=== PATIENT | female | born 1995 | race Caucasian/White ===

== ENCOUNTER 2020-01-29 10:35 | Emergency (ER) | payer MEDICAID ==
[~2020-01-29] VITALS: Ht 149.9 cm; Wt 72.1 kg
[~2020-01-29 10:35] MED LIST: OMEP20TC22 PO
[2020-01-29 10:38] VITALS: BP 144/80
--- NOTE | 2020-01-29 10:46 | NUR ---
Pt ambulated to bed 03
--- NOTE | 2020-01-29 10:49 | NUR ---
24 y/o female from [facility] c/o upper abd pain with vomiting x 1 wk. Pt was admitted to [facility] on 01/27/20 and discharged. Pt told to return to ER if pain persisted/worsened. States 9/10 sharp/shooting upper abd pain that radiates to back, worse with physical activity and eating. Denies diarrhea. Abd soft, flat, slightly tender to palp. Positioned for comfort. Pt states she has not taken any medication for pain. medhx: pancreatitis
--- NOTE | 2020-01-29 11:15 | NUR ---
Dr Aparicio at bedside examining pt
[2020-01-29] MEDS ORDERED: ONDANSETRON 4 MG/2 ML VIAL IVP ONE (11:35)
[2020-01-29] MEDS ORDERED: NACL 0.9% 1,000 ML IV ONE (11:35)
[2020-01-29] MEDS ORDERED: MORPHINE SULFATE 4 MG/ML SYR IVP ONE ×2 (11:35→13:05)
--- NOTE | 2020-01-29 11:45 | NUR ---
22G IV Placed to pts rt wrist, blood drawn at this time
[2020-01-29 12:13] LABS: BASOPHILS % (AUTO) 0.4 % (0.0-2.0); EOSINOPHILS # (AUTO) 0.1 K/uL (0-0.4); EOSINOPHILS % (AUTO) 0.8 % (0.0-4.0); HEMATOCRIT 41.9 % (36-48); LYMPHOCYTES # (AUTO) 2.6 K/uL (2.5-16.5); LYMPHOCYTES % (AUTO) 25.8 % (20.5-51.1); MEAN CORPUSCULAR HEMOGLOBIN 29 pg (27-31); MEAN CORPUSCULAR HGB CONC 33 g/dL (33-37); MEAN CORPUSCULAR VOLUME 86.2 fL (80-94); MONOCYTES # (AUTO) 0.4 K/uL (0.8-1.0); MONOCYTES % (AUTO) 4.1 % (1.7-9.3); NEUTROPHILS % (AUTO) 68.9 % (42.2-75.2); PLATELET COUNT (AUTO) 298 K/uL (140-450); RED BLOOD CELL COUNT(AUTO) 4.86 MIL/uL (4.20-5.40); RED CELL DISTRIBUTION WIDTH 12.9 % (11.6-13.7); WHITE BLOOD COUNT (AUTO) 10.2 K/uL (4.8-10.8)
--- NOTE | 2020-01-29 12:30 | NUR ---
Pt states decrease in pain, resting comfortably at this time. VSS. Will continue to monitor
[2020-01-29 12:31] LABS: ALBUMIN 4.2 g/dL (3.4-5.0); ANION GAP 16.6 (8-16); CREATININE 0.5 mg/dL (0.6-1.3); POTASSIUM 3.6 mmol/L (3.5-5.1); TOTAL BILIRUBIN 0.3 mg/dL (0.0-1.0)
--- NOTE | 2020-01-29 13:17 | NUR ---
IV removed at this time, 2x2 gauze placed.
[2020-01-29 13:24] VITALS: BP 136/79
--- NOTE | 2020-01-29 13:24 | NUR ---
Patient discharged with v/s stable. Written and verbal after care instructions given and explained. Patient alert, oriented and verbalized understanding of instructions. Ambulatory with steady gait. All questions addressed prior to discharge. ID band removed. Patient advised to follow up with PMD. Rx of Zofran 4mg and [place] 5mg-325mg given. Patient educated on indication of medication including possible reaction and side effects. Opportunity to ask questions provided and answered. Pt states she has ride home, given phone to call ride.
== END 2020-01-29 13:24 | disposition home or self-care (01) ==
LOC: MED 10:35
DX: R10.13 Epigastric pain (principal); K85.90 Acute pancreatitis without necrosis or infection, unspecified; Z79.899 Other long term (current) drug therapy
CPT/HCPCS: 36415; 80053; 83690; 85025; 96361; 96374; 96375; 96376; 99284; J2270; J2405; J7030

== ENCOUNTER 2020-01-31 13:48 | Emergency (ER) | payer MEDICAID ==
[~2020-01-31] VITALS: Ht 149.9 cm; Wt 57.2 kg
[2020-01-31 13:51] VITALS: BP_SYST 138; BP_SYST 81; BP_DIAS 40; BP_DIAS 99
--- NOTE | 2020-01-31 13:53 | NUR ---
PT AMB TO BED 12.
[2020-01-31] MEDS ORDERED: ONDANSETRON 4 MG/2 ML VIAL IVP ONE (14:10)
[2020-01-31] MEDS ORDERED: MORPHINE SULFATE 4 MG/ML SYR IVP ONE (14:10)
[2020-01-31] MEDS ORDERED: NACL 0.9% 1,000 ML IV ONE (14:10)
[2020-01-31 14:23] LABS: BASOPHILS % (AUTO) 0.2 % (0.0-2.0); EOSINOPHILS # (AUTO) 0.1 K/uL (0-0.4); EOSINOPHILS % (AUTO) 0.5 % (0.0-4.0); HEMATOCRIT 41.5 % (36-48); HEMOGLOBIN 13.9 g/dL (12.0-16.0); LYMPHOCYTES # (AUTO) 2.5 K/uL (2.5-16.5); LYMPHOCYTES % (AUTO) 20.8 % (20.5-51.1); MEAN CORPUSCULAR HEMOGLOBIN 29 pg (27-31); MEAN CORPUSCULAR HGB CONC 34 g/dL (33-37); MEAN CORPUSCULAR VOLUME 86.3 fL (80-94); MONOCYTES # (AUTO) 0.5 K/uL (0.8-1.0); MONOCYTES % (AUTO) 4.5 % (1.7-9.3); NEUTROPHILS # (AUTO) 8.8 K/uL (1.8-7.7); PLATELET COUNT (AUTO) 323 K/uL (140-450); RED BLOOD CELL COUNT(AUTO) 4.81 MIL/uL (4.20-5.40); RED CELL DISTRIBUTION WIDTH 13.2 % (11.6-13.7); WHITE BLOOD COUNT (AUTO) 11.8 K/uL (4.8-10.8)
--- NOTE | 2020-01-31 14:29 | NUR ---
c/o constant abdominal pain with recurring n/v
[2020-01-31 14:51] LABS: ALBUMIN 4.4 g/dL (3.4-5.0); ANION GAP 16.5 (8-16); CREATININE 0.7 mg/dL (0.6-1.3); POTASSIUM 3.5 mmol/L (3.5-5.1); TOTAL BILIRUBIN 0.2 mg/dL (0.0-1.0)
[2020-01-31 16:17] VITALS: BP 134/82
--- NOTE | 2020-01-31 16:18 | NUR ---
Patient discharged with v/s stable. Written and verbal after care instructions given and explained. Patient alert, oriented and verbalized understanding of instructions. Ambulatory with steady gait. All questions addressed prior to discharge. ID band removed. Patient advised to follow up with PMD. Rx of naproxen given. Patient educated on indication of medication including possible reaction and side effects. Opportunity to ask questions provided and answered. all diagnostics results handed to pt for f/u with pmd
== END 2020-01-31 16:18 | disposition home or self-care (01) ==
LOC: MED 13:48
DX: R10.84 Generalized abdominal pain (principal); K92.0 Hematemesis
CPT/HCPCS: 36415; 74176; 76705; 80053; 81002; 81025; 83690; 85025; 96361; 96374; 96375; 99285; J2270; J2405; Q0092; J7030

== ENCOUNTER 2020-02-03 14:12 | Emergency (ER) | payer MEDICAID ==
[~2020-02-03] VITALS: Ht 149.9 cm; Wt 57.2 kg
[2020-02-03 14:18] VITALS: BP 136/81
[2020-02-03] MEDS ORDERED: KETOROLAC 30 MG/ML VIAL IVP ONE (14:50)
[2020-02-03 15:09] LABS: BASOPHILS % (AUTO) 0.3 % (0.0-2.0); EOSINOPHILS # (AUTO) 0.1 K/uL (0-0.4); EOSINOPHILS % (AUTO) 1.4 % (0.0-4.0); HEMATOCRIT 37.2 % (36-48); HEMOGLOBIN 12.6 g/dL (12.0-16.0); LYMPHOCYTES # (AUTO) 2.6 K/uL (2.5-16.5); LYMPHOCYTES % (AUTO) 27.2 % (20.5-51.1); MEAN CORPUSCULAR HEMOGLOBIN 29 pg (27-31); MEAN CORPUSCULAR HGB CONC 34 g/dL (33-37); MEAN CORPUSCULAR VOLUME 85.9 fL (80-94); MONOCYTES # (AUTO) 0.3 K/uL (0.8-1.0); MONOCYTES % (AUTO) 3.4 % (1.7-9.3); NEUTROPHILS # (AUTO) 6.4 K/uL (1.8-7.7); NEUTROPHILS % (AUTO) 67.7 % (42.2-75.2); PLATELET COUNT (AUTO) 299 K/uL (140-450); RED BLOOD CELL COUNT(AUTO) 4.33 MIL/uL (4.20-5.40); WHITE BLOOD COUNT (AUTO) 9.5 K/uL (4.8-10.8)
[2020-02-03 15:25] LABS: ANION GAP 14.6 (8-16); CARBON DIOXIDE 24.7 mmol/L (21-32); CREATININE 0.5 mg/dL (0.6-1.3); POTASSIUM 3.3 mmol/L (3.5-5.1); TOTAL BILIRUBIN 0.3 mg/dL (0.0-1.0)
[2020-02-03 16:39] VITALS: BP 131/79
== END 2020-02-03 16:41 | disposition home or self-care (01) ==
LOC: MED 14:12
DX: J32.9 Chronic sinusitis, unspecified (principal); M54.5 Low back pain; R10.9 Unspecified abdominal pain; Z79.899 Other long term (current) drug therapy
CPT/HCPCS: 36415; 70450; 72125; 72131; 80053; 81002; 81025; 83690; 85025; 96374; 99285; J1885

== ENCOUNTER 2020-05-02 10:13 | Emergency (ER) | payer MEDICAID, SELFPAY ==
[~2020-05-02] VITALS: Ht 149.9 cm; Wt 59.0 kg
[2020-05-02 10:26] VITALS: BP 128/77
--- NOTE | 2020-05-02 10:35 | NUR ---
C/O SORE THROAT X 3 DAYS
--- NOTE | 2020-05-02 11:04 | NUR ---
Dr. Aparicio is evaluating the patient in the OF tent.
--- NOTE | 2020-05-02 11:06 | NUR ---
COVID SWAB SENT TO LAB.
[2020-05-02 11:30] VITALS: BP 128/77
--- NOTE | 2020-05-02 11:30 | NUR ---
Patient discharged with v/s stable. Written and verbal after care instructions given and explained. Patient verbalized understanding. Ambulatory with steady gait. All questions addressed prior to discharge. Advised to follow up with PMD.
--- NOTE | 2020-05-03 20:36 | NUR ---
Positive COVID-19 test results were received from lab. A copy of the test results were given to Infection
== END 2020-05-02 11:32 | disposition home or self-care (01) ==
LOC: MED 10:13
DX: J02.9 Acute pharyngitis, unspecified (principal); Z20.828 Contact with and (suspected) exposure to other viral communicable diseases
CPT/HCPCS: 99283; U0003

== ENCOUNTER 2020-09-16 16:17 | Emergency (ER) | payer MEDICAID ==
[~2020-09-16] VITALS: Ht 149.9 cm; Wt 57.6 kg
[2020-09-16 16:24] VITALS: BP 151/71
[2020-09-16 16:32] VITALS: BP 151/71
--- NOTE | 2020-09-16 16:32 | NUR ---
To ED bed 02. Addendum: 09/16/20 at 1637 by [facility] bed .
--- NOTE | 2020-09-16 16:37 | NUR ---
see complete assessment.
--- NOTE | 2020-09-16 16:38 | NUR ---
xray at bedside.
--- NOTE | 2020-09-16 17:01 | NUR ---
States 8/10 pain to right foot and requests for meds. MARIALUISA Huntley made aware.
[2020-09-16] MEDS ORDERED: KETOROLAC 30 MG/ML VIAL IM ONE (17:05)
[2020-09-16] MEDS ORDERED: KETOROLAC 30 MG/ML VIAL ONE (17:05)
[2020-09-16] MEDS ORDERED: ACETAMINOPHEN EXTRA STRENGTH 500 MG TAB PO ONE (17:20)
[2020-09-16] MEDS ORDERED: NAPR-54 PO (17:27)
[2020-09-16] MEDS ORDERED: traMADol 50 MG TAB PO ONE (17:30)
== END 2020-09-16 18:06 | disposition home or self-care (01) ==
LOC: MED 16:17
DX: M79.671 Pain in right foot (principal); W19.XXXA Unspecified fall, initial encounter; Y93.89 Activity, other specified; Y92.89 Other specified places as the place of occurrence of the external cause; Y99.8 Other external cause status
CPT/HCPCS: 73610; 73630; 96372; 99284; J1885

== ENCOUNTER 2020-12-01 22:04 | Emergency (ER) | payer MEDICAID ==
[~2020-12-01] VITALS: Ht 149.9 cm; Wt 59.0 kg
[~2020-12-01 22:04] MED LIST changes: +NAPR-54 PO
[2020-12-01 22:20] VITALS: BP 112/59
--- NOTE | 2020-12-01 22:20 | NUR ---
RECEIVED PT IN BED 7 WITH C/O CHEST DISCOMFORT SINCE THIS AM AND GENERAL BODY PAIN X 1 MONTH. PT STATES CHEST DISCOMFORT INCREASES WITH DEEP INSPIRATION. RESPIRATIONS ARE NOW REGULAR AND UNLABORED SKIN WARM AND DRY. ATTACHED TO CM = SR WITHOUT ECTOPY. PMH : DENIES NKDA
--- NOTE | 2020-12-01 23:15 | NUR ---
PT. LAYING COMFORTABLY AND VOICES NO COMPLAINTS. AWAITING DISPOSITION
--- NOTE | 2020-12-01 23:35 | NUR ---
Patient being evaluated by physician at bedside.
[2020-12-02] MEDS ORDERED: KETOROLAC 30 MG/ML VIAL IM ONE
--- NOTE | 2020-12-02 01:34 | NUR ---
NEEMA AND INFLUENZA SWABS OBTAINED AND BROUGHT TO LAB
[2020-12-02] MEDS ORDERED: CYCL-711 PO (02:31)
[2020-12-02] MEDS ORDERED: KETO10TA2 PO (02:31)
[2020-12-02 02:44] VITALS: BP 107/57
--- NOTE | 2020-12-02 02:44 | NUR ---
Patient discharged with v/s stable. Written and verbal after care instructions given and explained. Patient alert, oriented and verbalized understanding of instructions. Ambulatory with steady gait. All questions addressed prior to discharge. ID band removed. Patient advised to follow up with PMD. Rx of FLEXERIL AND KETOROLAC TROMETHAMINE given. Patient educated on indication of medication including possible reaction and side effects. Opportunity to ask questions provided and answered.
== END 2020-12-02 02:44 | disposition home or self-care (01) ==
LOC: MED 22:04
DX: M54.5 Low back pain (principal); Z20.822 Contact with and (suspected) exposure to COVID-19; R05 Cough; R06.02 Shortness of breath; R07.9 Chest pain, unspecified; Z79.899 Other long term (current) drug therapy
CPT/HCPCS: 71045; 81002; 81025; 87426; 87804; 93005; 96372; 99285; J1885

== ENCOUNTER 2021-03-27 14:45 | Emergency (ER) | payer MEDICAID ==
[~2021-03-27] VITALS: Ht 149.9 cm; Wt 62.6 kg
[~2021-03-27 14:45] MED LIST changes: +CYCL-711 PO; +KETO10TA2 PO
[2021-03-27 14:51] VITALS: BP 144/72
--- NOTE | 2021-03-27 15:01 | NUR ---
PT AMBULATED TO BED 4
[2021-03-27] MEDS ORDERED: KETOROLAC 30 MG/ML VIAL IM ONE (15:40)
[2021-03-27] MEDS ORDERED: DICYCLOMINE HCL LIQUID 20 MG, ALUMINUM HYD/MAG/SIMETHICONE 30 ML, LIDOCAINE VISCOUS 2% ... PO ONE ×3 (15:40)
[2021-03-27 16:05] LABS: BASOPHILS % (AUTO) 0.5 % (0.0-2.0); EOSINOPHILS # (AUTO) 0.1 K/uL (0-0.4); EOSINOPHILS % (AUTO) 1.8 % (0.0-4.0); HEMATOCRIT 39.5 % (36-48); HEMOGLOBIN 13.5 g/dL (12.0-16.0); LYMPHOCYTES # (AUTO) 2.1 K/uL (2.5-16.5); LYMPHOCYTES % (AUTO) 31.3 % (20.5-51.1); MEAN CORPUSCULAR HEMOGLOBIN 30 pg (27-31); MEAN CORPUSCULAR HGB CONC 34 g/dL (33-37); MEAN CORPUSCULAR VOLUME 87.7 fL (80-94); MONOCYTES # (AUTO) 0.5 K/uL (0.8-1.0); MONOCYTES % (AUTO) 7.4 % (1.7-9.3); PLATELET COUNT (AUTO) 299 K/uL (140-450); RED BLOOD CELL COUNT(AUTO) 4.51 MIL/uL (4.20-5.40); RED CELL DISTRIBUTION WIDTH 12.4 % (11.6-13.7); WHITE BLOOD COUNT (AUTO) 6.8 K/uL (4.8-10.8)
--- NOTE | 2021-03-27 16:15 | NUR ---
preg urine dip negative
[2021-03-27] MEDS ORDERED: DICYCLOMINE HCL LIQUID 10 MG/5 ML UDC ONE (16:22)
[2021-03-27] MEDS ORDERED: ALUMINUM HYD/MAG/SIMETHICONE 30 ML UDC ONE (16:22)
--- NOTE | 2021-03-27 16:33 | NUR ---
pt ambulated to restroom steady gait.
[2021-03-27] MEDS ORDERED: MORPHINE SULFATE 4 MG/ML SYR IVP ONE (16:50)
[2021-03-27] MEDS ORDERED: ONDANSETRON 4 MG/2 ML VIAL IVP ONE (16:50)
[2021-03-27 16:55] LABS: ANION GAP 14.4 (8-16); CARBON DIOXIDE 24.5 mmol/L (21-32); CREATININE 0.7 mg/dL (0.6-1.3); POTASSIUM 3.9 mmol/L (3.5-5.1); TOTAL BILIRUBIN 0.2 mg/dL (0.0-1.0)
[2021-03-27] MEDS ORDERED: ACET-8386 PO (17:32)
[2021-03-27] MEDS ORDERED: MAG-27 PO (17:32)
[2021-03-27] MEDS ORDERED: ONDANSETRON 4 MG ODT PO ONE (18:00)
[2021-03-27] MEDS ORDERED: MORPHINE SULFATE 4 MG/ML SYR IM ONE (18:00)
--- NOTE | 2021-03-27 18:08 | NUR ---
held iv for medication change to im and po per dr mccartney.
--- NOTE | 2021-03-27 18:36 | NUR ---
PT REQUESTS TO SPEAK TO PROVIDER REGARDING RESULTS OF TESTS DONE WHILE IN ER AND DX . NOTIFIED ER PROVIDER. ER PROVIDER TO SPEAK TO PATIENT.
--- NOTE | 2021-03-27 18:59 | NUR ---
Patient discharged with v/s stable. Written and verbal after care instructions ABOUT ABDOMINAL PAIN given and explained. Patient alert, oriented and verbalized understanding of instructions. Ambulatory with steady gait. All questions addressed prior to discharge. ID band removed. Patient advised to follow up with PMD. Rx of NORCO 5-325MG AND MYLANTA MAXIMUM STRENGTH LIQ given. Patient educated on indication of medication including possible reaction and side effects. Opportunity to ask questions provided and answered.
== END 2021-03-27 18:59 | disposition home or self-care (01) ==
LOC: MED 14:45
DX: R10.13 Epigastric pain (principal); R11.10 Vomiting, unspecified; R07.9 Chest pain, unspecified; Z79.899 Other long term (current) drug therapy
CPT/HCPCS: 36415; 76705; 80053; 81025; 83690; 85025; 96372; 99284; J1885; J2270; Q0092; Q0162

== ENCOUNTER 2021-04-10 08:43 | Emergency (ER) | payer MEDICAID ==
[~2021-04-10] VITALS: Ht 149.9 cm; Wt 59.0 kg
[~2021-04-10 08:43] MED LIST changes: +ACET-8386 PO; +MAG-27 PO
[2021-04-10 08:58] VITALS: BP 133/95
--- NOTE | 2021-04-10 09:03 | NUR ---
PT AMB TO BED 4.
--- NOTE | 2021-04-10 09:30 | NUR ---
26 Y/O FEMALE C/O LOWER BACK PAIN X 2 WEEKS AND C/O RIGHT SHOULDER X YESTERDAY. 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 PT REPORTS TAKING TYLENOL 4 HOURS AGO. PT RATES PAIN 10/10 THAT SHE DESCRIBES SHOOTING PAIN. PT DENIES NUMBNESS/TINGING. PT HAS FULL SENSATION. PAIN WORSENS WITH MOVEMENT. RADIAL PULSES +2. PT A/O X4 WITH EVEN AND UNLABORED RESPIRATIONS. PMH: DENIES NKDA
--- NOTE | 2021-04-10 09:40 | NUR ---
Dr. Garner at bedside evaluating patient.
[2021-04-10] MEDS ORDERED: LID5T TP (09:59)
[2021-04-10] MEDS ORDERED: GABA-636 PO (10:01)
[2021-04-10] MEDS: KETOROLAC 30 MG/ML VIAL IM ONE (10:16)
[2021-04-10] MEDS: DEXAMETHASONE 10 MG/ML VIAL IM ONE (10:16)
--- NOTE | 2021-04-10 10:19 | NUR ---
per ermd sling was place on pt.
--- NOTE | 2021-04-10 10:45 | NUR ---
Chata menjivar in EDM - 04/10/21 at 1105 by BETHANIE DISCHARGED PT. PT AMBULATED TO BATHROOM WITH STEADY GAIT. ADVISED PT TO FOLLOW UP WITH DOCTOR. PUT PERSONAL BELONGINGS IN BAG DUE TO ARM IN SLING.
--- NOTE | 2021-04-10 10:47 | NUR ---
Patient discharged with v/s stable. Written and verbal after care instructions given and explained. Patient alert, oriented and verbalized understanding of instructions. Ambulatory with steady gait. All questions addressed prior to discharge. ID band removed. Patient advised to follow up with PMD. Rx of LIDOCAINE AND GABAPENTIN given. Patient educated on indication of medication including possible reaction and side effects. Opportunity to ask questions provided and answered.
--- NOTE | 2021-04-10 10:48 | NUR ---
The patient's care was reviewed and supervised by Sammi Caraballo RN, RN.
== END 2021-04-10 10:47 | disposition home or self-care (01) ==
LOC: MED 08:43
DX: M54.50 Low back pain, unspecified (principal); G89.29 Other chronic pain; M25.511 Pain in right shoulder; Z79.899 Other long term (current) drug therapy; Z79.891 Long term (current) use of opiate analgesic; Z79.1 Long term (current) use of non-steroidal anti-inflammatories (NSAID)
CPT/HCPCS: 96372; 99284; J1100; J1885

== ENCOUNTER 2021-05-31 10:37 | Emergency (ER) | payer MEDICAID ==
[~2021-05-31] VITALS: Ht 149.9 cm; Wt 57.2 kg
[~2021-05-31 10:37] MED LIST changes: +GABA-636 PO; +LID5T TP
[2021-05-31 10:51] VITALS: BP 147/101
--- NOTE | 2021-05-31 10:59 | NUR ---
PATIENT AMBULATED TO [facility].
--- NOTE | 2021-05-31 11:00 | NUR ---
C/O LEFT EYELIDS SWELLING, EYES IRRITATION & WATERY EYES S/P ALLERGIC REACTION X YESTERDAY. PT TOOK BENADRYL YESTERDAY. PMH: FRANCES Addendum: 05/31/21 at 1137 by MED1 BACK PAIN
[2021-05-31] MEDS ORDERED: FLUORESCEIN OPTH STRIP 1 MG OP ONE (11:55)
[2021-05-31] MEDS ORDERED: TETRACAINE HCL/PF 0.5% OPTH 4 ML BTL OP ONE (12:00)
--- NOTE | 2021-05-31 12:02 | NUR ---
PT MOVED TO ER BED 4 FOR EYE EXAM.
[2021-05-31] MEDS ORDERED: DIPH25TA53 PO (12:13)
[2021-05-31] MEDS ORDERED: IBUPROFEN 600 MG TAB PO ONE (12:25)
--- NOTE | 2021-05-31 12:31 | NUR ---
26 YEARS OLD FEMALE PRESENT TO ER C/O LOWER MID BACK PAIN NO INJURY MOTRIN GIVEN TOLERATED WELL.
[2021-05-31 12:38] VITALS: BP 130/80
--- NOTE | 2021-05-31 12:39 | NUR ---
PATIENT CONDITION STABLE D/C HOME WITH INSTRUCTIONS AFTER CARE REVIEWED UNDERSTOOD LEFT ER AMBUALTORY WITH STEADY GAIT.
== END 2021-05-31 12:38 | disposition home or self-care (01) ==
LOC: MED 10:37
DX: H57.89 Other specified disorders of eye and adnexa (principal); M54.9 Dorsalgia, unspecified
CPT/HCPCS: 99284; Q0163

== ENCOUNTER 2021-12-28 17:26 | Emergency (ER) | payer MEDICAID ==
[~2021-12-28] VITALS: Ht 149.9 cm; Wt 68.0 kg
[~2021-12-28 17:26] MED LIST changes: +DIPH25TA53 PO
[2021-12-28 17:34] VITALS: BP 136/80
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
[2021-12-28] MEDS ORDERED: BACITRACIN OINT 500 UNITS/GM PKT TP ONE (18:00)
[2021-12-28] MEDS ORDERED: IBUPROFEN 600 MG TAB PO ONE (18:00)
--- NOTE | 2021-12-28 18:23 | NUR ---
PER ER MID LEVEL, PT WOUND TO LEFT 2ND DIGIT DRESSED. SHORT FINGER SPLINT APPLIED TO L 2ND DIGIT. + CMS AFTER APPLICATION. PT TOLERATED SPLINT
[2021-12-28] MEDS ORDERED: BACI1PAC6 TP (18:32)
[2021-12-28] MEDS ORDERED: CEPH-588 PO (18:32)
[2021-12-28] MEDS ORDERED: IBUP-2213 PO (18:32)
[2021-12-28 18:57] VITALS: BP 136/80
--- NOTE | 2021-12-28 19:17 | NUR ---
Patient discharged with v/s stable. Written and verbal after care instructions given and explained. Patient alert, oriented and verbalized understanding of instructions. Ambulatory with steady gait. All questions addressed prior to discharge. ID band removed. Patient advised to follow up with PMD. Rx of KEFLEX AND BACITRACIN OINT. given. Patient educated on indication of medication including possible reaction and side effects. Opportunity to ask questions provided and answered.
== END 2021-12-28 18:57 | disposition home or self-care (01) ==
LOC: MED 17:26
DX: S61.211A Laceration without foreign body of left index finger without damage to nail, initial encounter (principal); L03.012 Cellulitis of left finger; R03.0 Elevated blood-pressure reading, without diagnosis of hypertension; Z79.899 Other long term (current) drug therapy; W45.8XXA Other foreign body or object entering through skin, initial encounter; Y93.89 Activity, other specified; Y92.89 Other specified places as the place of occurrence of the external cause; Y99.8 Other external cause status
CPT/HCPCS: 90471; 90715; 99283

== ENCOUNTER 2022-03-06 16:53 | Emergency (ER) | payer MEDICAID ==
[~2022-03-06] VITALS: Ht 149.9 cm; Wt 66.7 kg
[~2022-03-06 16:53] MED LIST changes: +BACI1PAC6 TP; +CEPH-588 PO; +IBUP-2213 PO
[2022-03-06 17:14] VITALS: BP 129/95
--- NOTE | 2022-03-06 18:11 | NUR ---
MARIALUISA MEHTA AT PT SIDE FOR EVAL
[2022-03-06] MEDS ORDERED: KETOROLAC 30 MG/ML VIAL IM ONE (18:20)
[2022-03-06] MEDS ORDERED: METOCLOPRAMIDE 10 MG/2 ML INJ VIAL IM ONE (19:35)
--- NOTE | 2022-03-06 20:50 | NUR ---
PT TAKEN TO BED 6
[2022-03-06] MEDS ORDERED: METOCLOPRAMIDE 10 MG/2 ML INJ VIAL ONE (20:56)
[2022-03-06 21:02] VITALS: BP 130/89
--- NOTE | 2022-03-06 21:02 | NUR ---
PATIENT MEDICATED AND SITTING IN CHAIR B
--- NOTE | 2022-03-06 21:03 | NUR ---
TYSON ASSESSING PATIENT IN CHAIR B
[2022-03-06] MEDS ORDERED: IBUP-2213 PO (21:09)
[2022-03-06] MEDS ORDERED: ACET-8386 PO (21:09)
--- NOTE | 2022-03-06 21:31 | NUR ---
PATIENT LEFT WITHOUT DISCHARGE PAPERS.
--- NOTE | 2022-03-06 21:31 | NUR ---
ATTEMPTED TO CALL PATIENT IN THE LOBBY FOR DISCHARGE PAPERS WITH NO SUCCESS.
--- NOTE | 2022-03-06 21:31 | NUR ---
Chart checked and completed.
== END 2022-03-06 21:31 | disposition home or self-care (01) ==
LOC: MED 16:53
DX: R51.9 Headache, unspecified (principal)
CPT/HCPCS: 81002; 81025; 96372; 99284; J1885; J2765; Q0163

== ENCOUNTER 2022-04-23 17:24 | Emergency (ER) | payer MEDICAID ==
--- NOTE | 2022-04-23 17:38 | NUR ---
name called, no answer
--- NOTE | 2022-04-23 17:50 | NUR ---
name called, no answer
--- NOTE | 2022-04-23 18:13 | NUR ---
lwbs at this time
== END 2022-04-23 18:13 | disposition left against medical advice (07) ==
LOC: MED 17:24
DX: R06.02 Shortness of breath (principal); Z53.21 Procedure and treatment not carried out due to patient leaving prior to being seen by health care provider

== ENCOUNTER 2022-09-23 16:13 | Emergency (ER) | payer MEDICAID ==
[~2022-09-23] VITALS: Ht 154.9 cm; Wt 71.7 kg
[~2022-09-23 16:13] MED LIST changes: -ACET-8386 PO; +ACET-8905 PO; +BACI-416 TP; -BACI1PAC6 TP
[2022-09-23 16:19] VITALS: BP 136/72
--- NOTE | 2022-09-23 16:33 | NUR ---
Patient ambulated to bed 6.
--- NOTE | 2022-09-23 16:40 | NUR ---
Dr. Krueger evaluating patient at bedside.
[2022-09-23] MEDS ORDERED: LIDOCAINE 5% 1 EA PATCH TP ONE (16:45)
[2022-09-23] MEDS ORDERED: DEXAMETHASONE 4 MG/ML VIAL PO ONE (16:45)
[2022-09-23] MEDS ORDERED: LID5T TP (16:48)
[2022-09-23] MEDS ORDERED: CYCL-711 PO (16:48)
[2022-09-23] MEDS ORDERED: BENZ-300 PO (16:48)
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
--- NOTE | 2022-09-23 17:20 | NUR ---
Patient discharged with v/s stable. Written and verbal after care instructions given. Patient alert, oriented and verbalized understanding of instructions. Ambulatory with steady gait. All questions addressed prior to discharge. ID band removed. Patient advised to follow up with PMD. Rx of Cepacol Sore Throat Lozenges, Flexeril and Lidocaine given. Opportunity to ask questions provided and answered.
--- NOTE | 2022-09-23 17:35 | NUR ---
The patient's care was reviewed and supervised by Bonnie Valerio, RN, RN.
== END 2022-09-23 17:20 | disposition home or self-care (01) ==
LOC: MED 16:13
DX: J02.8 Acute pharyngitis due to other specified organisms (principal); B97.89 Other viral agents as the cause of diseases classified elsewhere; G89.29 Other chronic pain; M54.50 Low back pain, unspecified; Z79.899 Other long term (current) drug therapy; Z79.1 Long term (current) use of non-steroidal anti-inflammatories (NSAID); Z79.2 Long term (current) use of antibiotics; Z79.891 Long term (current) use of opiate analgesic; Z91.09 Other allergy status, other than to drugs and biological substances
CPT/HCPCS: 81025; 99283; J1100

== ENCOUNTER 2023-09-16 21:49 | Emergency (ER) | payer MEDICAID ==
[~2023-09-16] VITALS: Ht 147.3 cm; Wt 72.1 kg
[~2023-09-16 21:49] MED LIST changes: -BACI-416 TP; +BACI-418 TP; +BENZ-300 PO
[2023-09-16 22:39] VITALS: BP 151/99; PULSE 84; RESP 18; TEMP 97.8; O2SAT 98
[2023-09-16 23:36] VITALS: O2SAT 99
[2023-09-16] MEDS: ACETAMINOPHEN EXTRA STRENGTH 500 MG TAB PO ONE (23:57)
[2023-09-17 00:14] VITALS: BP 135/85; PULSE 87; RESP 15; TEMP 97.9; O2SAT 99
[2023-09-17] MEDS ORDERED: ONDA-188 PO (01:17)
== END 2023-09-17 01:22 | disposition home or self-care (01) ==
LOC: MED 21:49
DX: S06.0X0A Concussion without loss of consciousness, initial encounter (principal); Z79.899 Other long term (current) drug therapy; W22.8XXA Striking against or struck by other objects, initial encounter; Y92.22 Religious institution as the place of occurrence of the external cause; Y93.89 Activity, other specified; Y99.8 Other external cause status
CPT/HCPCS: 70450; 72125; 81025; 99284

== ENCOUNTER 2024-02-26 20:47 | Emergency (ER) | payer MEDICAID, OTHER ==
[~2024-02-26] VITALS: Ht 149.9 cm; Wt 63.5 kg
[~2024-02-26 20:47] MED LIST changes: +NAPR-337 PO; -NAPR-54 PO; +ONDA-188 PO
[2024-02-26 20:57] VITALS: BP 137/85; PULSE 65; RESP 18; TEMP 98.2; O2SAT 97
== END 2024-02-26 23:35 | disposition left against medical advice (07) ==
LOC: MED 20:47
DX: R51.9 Headache, unspecified (principal); Z53.21 Procedure and treatment not carried out due to patient leaving prior to being seen by health care provider